=== PATIENT | female | born 1985 | race Caucasian/White ===

== ENCOUNTER 2016-08-29 10:54 | Emergency (ER) | payer MEDICAID ==
[2016-08-29 12:34] VITALS: BP 122/69
== END 2016-08-29 12:34 | disposition home or self-care (01) ==
LOC: ED 10:54
DX: M79.602 Pain in left arm (principal); M54.2 Cervicalgia; R20.2 Paresthesia of skin; I10 Essential (primary) hypertension; E11.9 Type 2 diabetes mellitus without complications; Z79.84 Long term (current) use of oral hypoglycemic drugs